=== PATIENT | female | born 1985 | race Hispanic/Latino ===

== ENCOUNTER 2017-12-26 00:17 | Day surgery (SDC) | payer SELFPAY ==
[2017-12-26 01:01] VITALS: BP 123/66; TEMP 98.4; BMI 32.3
--- NOTE | 2017-12-26 01:38 | PDOC.EVN ---
Event Note - Event Note Event Note: [facility] Attending Attestation Patient seen and examined at bedside with Dr Lulu Ross () HPI: 32 yo , patient of Dr Gomez, here for an episode of postcoital VB, no LOF, no ctx, no HX previa, no lacerations suspected, no abdominal trauama. Good FM. This occurred within the last hour. Now with decreased sxs, no clots passed. EGA= 23 weeks 6 days Review of symptoms: as per HPI Past medical: none Past surgical: none OB HX: Allergies: none Physical: NAD Abd soft, NT no contractions palpated Vag: no gross bleeding CX FT to closed and long FHTs normal on doppler Assessment and Plan: Postcoital VB at 23 weeks No evidence PTL or cervical dilation No evidence ROM Information given Q&A done Ok for outpatient follow up
--- NOTE | 2017-12-26 01:41 | PDOC.LDHP ---
Labor and Delivery H&P Chief complaint: other (vaginal bleeding) HPI: 32 y/o @ 23.6 WGA presents due to vaginal bleeding that started immediately following intercourse. She states it was a small amount of blood, but enough to concern her. She reports that it has decreased and is now just pink discharge. She denies any other vaginal d/c, LOF, ctx, dysuria, fevers, chills. She reports good movement. Current gestational age (weeks): 23 ([id number]) Due date: 04/18/18 Grav: 2 Para: 1 Current complications: none Abnormal US findings: No Past Medical History: None Current medications: pre-flavia vitamins Previous surgical history: none Allergies/Adverse Reactions: Allergies Allergy/AdvReac Type Severity Reaction Status Date / Time No Known Allergies Allergy Verified 12/26/17 01:02 Social history: none - Physical Exam Vital signs reviewed and normal: yes General: NAD Heart: RRR Lungs: CTAB Abdomen: gravid Extremeties: no edema FHT: category 1, variability present [place] contractions every: None - Vaginal Exam cm dilated: 1 Effacement: 25% Station: -3 - Assessment Postcoital Vaginal Bleeding in The patient was not dilated on cervical exam and there was not active bleeding. No evidence of rupture of membranes. -Will d/c patient home with return precautions. -f/u with PCP for routine OB visits.
== END 2017-12-26 01:42 | disposition home or self-care (01) ==
LOC: L&D/OP 00:17
PROVIDERS: ATTEND Obstetrics & Gynecology
DX: O99.89 Other specified diseases and conditions complicating pregnancy, childbirth and the puerperium (principal); N93.0 Postcoital and contact bleeding; Z3A.23 23 weeks gestation of pregnancy; Z79.899 Other long term (current) drug therapy

== ENCOUNTER 2019-03-10 12:07 | Emergency (ER) | payer BC, OTHER | END 2019-03-10 12:37 | disposition home or self-care (01) | LOC: ERS 12:07 | DX: J06.9 Acute upper respiratory infection, unspecified (principal) | CPT/HCPCS: 99283 ==

== ENCOUNTER 2019-12-07 13:10 | Emergency (ER) | payer SELFPAY ==
[2019-12-07] MEDS ORDERED: Fluorescein Opthalmic Strip ONE (13:35)
[2019-12-07] MEDS ORDERED: Proparacaine 0.5% Opth 15 ML BOT ONE (13:36)
== END 2019-12-07 14:28 | disposition home or self-care (01) ==
LOC: ERS 13:10
DX: H10.9 Unspecified conjunctivitis (principal)
CPT/HCPCS: 99283